=== PATIENT | male | born 1955 | race Two or more races ===

== ENCOUNTER 2020-03-28 02:00 | Outpatient (CLI) | payer OTHER | END 2020-03-28 02:05 | disposition home or self-care (01) | LOC: PPH VACUNA 02:00 | PROVIDERS: ATTEND Emergency Medicine Pediatric Emergency Medicine | DX: Z23 Encounter for immunization (principal) ==

== ENCOUNTER 2020-04-18 11:34 | Outpatient (CLI) | payer OTHER | END 2020-04-18 11:36 | disposition home or self-care (01) | LOC: PPH VACUNA 11:34 | PROVIDERS: ATTEND Emergency Medicine Pediatric Emergency Medicine | DX: Z23 Encounter for immunization (principal) ==